=== PATIENT | female | born 1975 | race Caucasian/White ===

== ENCOUNTER 2016-10-04 15:57 | Emergency (ER) | payer OTHER | END 2016-10-04 17:52 | disposition home or self-care (01) | LOC: FER 15:57 | DX: M25.562 Pain in left knee (principal); J02.9 Acute pharyngitis, unspecified; E03.9 Hypothyroidism, unspecified; Z79.899 Other long term (current) drug therapy | CPT/HCPCS: 73564; 87450; J2930 ==

== ENCOUNTER 2016-10-22 18:51 | Emergency (ER) | payer OTHER | END 2016-10-22 19:58 | disposition left against medical advice (07) | LOC: FER 18:51 | DX: M25.562 Pain in left knee (principal); Z53.8 Procedure and treatment not carried out for other reasons ==